=== PATIENT | female | born 1985 | race Caucasian/White ===

== ENCOUNTER → 2016-08-03 | Outpatient (CLI) | payer BC ==
[~2016-08-03] MED LIST: ALBUTEROL0.09 MG/A1 IH; BUPROBAN150 MG; DEPO-PROVER150 MG/M1 IM; DICLEGIS PO; GABAPENTIN300 M1 PO; PEPCID 20MG TAB20 MG PO; PRENACARE1 TAB PO; PRENATAL; PROTONIX20 MG PO; REGLAN 10MG10 MG/TAB PO; SEROQUEL50 MG PO; ZOFRAN 4MG T4 MG/TAB PO; ZOLOFT100 MG PO
== END ==
LOC: BHSO 15:23
DX: F31.81 Bipolar II disorder (principal)

== ENCOUNTER → 2016-09-26 | Outpatient (CLI) | payer BC | LOC: BHSO 10:30 | DX: F31.81 Bipolar II disorder (principal) ==

== ENCOUNTER → 2016-11-22 | Outpatient (CLI) | payer BC | LOC: BHSO 10:39 | DX: F31.81 Bipolar II disorder (principal) ==

== ENCOUNTER → 2017-03-08 | Outpatient (CLI) | payer BC | LOC: BHSO 09:44 | DX: F31.81 Bipolar II disorder (principal) | CPT/HCPCS: G0463 ==

== ENCOUNTER → 2017-09-28 | Outpatient (CLI) | payer BC | LOC: BHSO 16:07 | DX: F41.1 Generalized anxiety disorder (principal) | CPT/HCPCS: G0463 ==

== ENCOUNTER → 2018-04-26 | Outpatient (CLI) | payer BC | LOC: BHSO 15:08 | DX: F41.1 Generalized anxiety disorder (principal) | CPT/HCPCS: G0463 ==

== ENCOUNTER → 2018-06-07 | Outpatient (CLI) | payer BC | LOC: BHSO 11:07 | DX: F31.81 Bipolar II disorder (principal) | CPT/HCPCS: G0463 ==

== ENCOUNTER → 2018-09-11 | Outpatient (CLI) | payer BC | LOC: BHSO 14:44 | DX: F31.81 Bipolar II disorder (principal) | CPT/HCPCS: G0463 ==

== ENCOUNTER → 2018-11-01 | Outpatient (CLI) | payer BC | LOC: BHSO 10:21 | DX: F31.81 Bipolar II disorder (principal) | CPT/HCPCS: G0463 ==

== ENCOUNTER → 2019-03-12 | Outpatient (CLI) | payer BC | LOC: BHSO 13:00 | DX: F31.81 Bipolar II disorder (principal) | CPT/HCPCS: G0463 ==

== ENCOUNTER → 2019-07-03 | Outpatient (CLI) | payer BC | LOC: BHSO 14:45 | DX: F31.81 Bipolar II disorder (principal) | CPT/HCPCS: G0463 ==

== ENCOUNTER → 2019-08-13 | Outpatient (CLI) | payer BC | LOC: BHSO 16:26 | DX: F31.81 Bipolar II disorder (principal) | CPT/HCPCS: G0463 ==

== ENCOUNTER → 2019-09-26 | Outpatient (CLI) | payer BC | LOC: BHSO 13:52 → BHSTELE 13:52 | DX: F31.81 Bipolar II disorder (principal) ==

== ENCOUNTER → 2019-11-06 | Outpatient (CLI) | payer BC | LOC: BHSTELE 14:20 | DX: F31.81 Bipolar II disorder (principal) | CPT/HCPCS: G0463 ==